=== PATIENT | male | born 1960 | race Caucasian/White ===

== ENCOUNTER → 2016-09-20 | Outpatient (CLI) | payer BC ==
--- NOTE | 2016-09-20 09:03 | PCM.PRNOTE ---
- Free Text/Narrative Note: Exercise MIBI Indication CP Sestamibi Tc99 25 MCi was given at the peak HR Patient was brought to the stress test lab in postabsorptive state verbal and paper consent was obtained from patient Vital signs at resting state blood pressure of 108/68 with a heart rate of 85 EKG shows sinus rhythm no ST changes no Q waves Maximal heart rate of 162 and target heart rate is 139 Patient reached the target heart rate, completed stage IV Matteo protocol Peak blood pressure is 148/84 Total exercise time of 10.[address] changes with a peak heart rate no arrhythmia METS 12.8 No symptom of chest pain or feeling dizzy Impression Normal hemodynamics, normal chronotropic, excellent exercise capacity, negative for ischemia on EKG Plan Nuclear portion pending
--- NOTE | 2016-09-20 12:40 | NM ---
EXAMINATION: Nuclear medicine myocardial perfusion study with exercise stress test. HISTORY: EST. PROCEDURE: Patient exercised according to Matteo protocol for 10 minutes and 32 seconds and achieved maximal hea rt rate of 162 beats per minute. Adequate exercise. Following intravenous administration of 26.8 mCi of technetium 99m sestamibi, stress SPECT images i ncluding gating imaging was performed. FINDINGS: Stress myocardial SPECT images demonstrates minimally decreased perfusion along the inferior wall to wards the base, likely diaphragmatic attenuation. Review of gated images demonstrates normal wall motion, contractility and wall thickening. The left ventricular ejection fraction is 73 %. The left ventricular chamber size is normal. IMPRESSION: 1. No definite evidence of myocardial ischemia. Mildly decreased uptake along the inferior wall towa rds the base, likely diaphragmatic attenuation. If confirmation is needed consider rest imaging. 2. Normal ventricular chamber size and function with ejection fraction of 73 %.
== END ==
LOC: MW.NM 06:32
PROVIDERS: ATTEND Family Medicine
DX: R07.9 Chest pain, unspecified (principal)
CPT/HCPCS: 78451; 93017; A9500

== ENCOUNTER 2018-11-20 22:09 | Emergency (ER) | payer BC, OTHER ==
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
== END 2018-11-20 22:55 | disposition home or self-care (01) ==
LOC: MW.ED 22:09
DX: M54.5 Low back pain (principal); V89.2XXA Person injured in unspecified motor-vehicle accident, traffic, initial encounter
CPT/HCPCS: 99283

== ENCOUNTER 2021-04-02 18:11 | Emergency (ER) | payer OTHER ==
[2021-04-02] MEDS ORDERED: methylPREDNISolone Sodium Succinate 125 MG/2 ML SDV IM ONE (18:58)
[2021-04-02] MEDS ORDERED: Acetaminophen/oxyCODONE 325-10 MG Tab PO ONE (18:58)
[2021-04-02] MEDS ORDERED: Lidocaine 5% 700 MG Patch TOP ONE (19:00)
== END 2021-04-02 19:27 | disposition home or self-care (01) ==
LOC: MW.ED 18:11
DX: M54.42 Lumbago with sciatica, left side (principal)
CPT/HCPCS: 96372; 99283; A9270; J2930